=== PATIENT | male | born 1980 | race Caucasian/White ===

== ENCOUNTER → 2024-09-30 09:11 | Outpatient (REF) | payer OTHER, SELFPAY | LOC: HWRAD 09:11 | PROVIDERS: ATTENDING PHYSICIAN Internal Medicine Gastroenterology; FAMILY PHYSICIAN Family Medicine | DX: E66.01 Morbid (severe) obesity due to excess calories (principal) | CPT/HCPCS: 76700 ==

== ENCOUNTER 2024-10-14 06:18 | Day surgery (SDC) | payer OTHER, SELFPAY ==
[2024-10-14 11:00] VITALS: BP 139/90
[2024-10-14 11:20] VITALS: BMI 54.1
[2024-10-14 11:22] VITALS: BMI 54.1
[2024-10-14 13:21] VITALS: BP 113/71
== END 2024-10-14 13:57 | disposition home or self-care (01) ==
LOC: SDS 06:18
DX: Z12.11 Encounter for screening for malignant neoplasm of colon (principal); D12.5 Benign neoplasm of sigmoid colon; D17.5 Benign lipomatous neoplasm of intra-abdominal organs; K64.0 First degree hemorrhoids; K29.80 Duodenitis without bleeding; K22.89 Other specified disease of esophagus; K90.0 Celiac disease; K31.89 Other diseases of stomach and duodenum
CPT/HCPCS: 45385; 45380; 43239; 88305; 88342

== ENCOUNTER → 2025-06-30 08:05 | Outpatient (REF) | payer OTHER, SELFPAY | LOC: RCS 08:05 | PROVIDERS: ATTENDING PHYSICIAN Internal Medicine Cardiovascular Disease | DX: R93.1 Abnormal findings on diagnostic imaging of heart and coronary circulation (principal) | CPT/HCPCS: 93306 ==